=== PATIENT | male | born 1945 | race Caucasian/White ===

== ENCOUNTER 2020-11-05 09:11 | Outpatient (REF) | payer OTHER, SELFPAY ==
--- NOTE | ~2020-11-05 | XR_ITS ---
EXAMINATION: XR SHOULDER, LEFT CLINICAL INFORMATION: Left shoulder and upper arm pain. COMPARISON: None TECHNIQUE: AP external rotation, Grashey, scapular Y, and axillary views of the left shoulder. FINDINGS: There is loss of glenohumeral joint space. The AC joint appears intact with mild periarticular spurring. No visible acute fracture, dislocation or bony erosive changes seen. There is no abnormal joint effusion. XR/XR shoulder LT min 2V IMPRESSION: Degenerative arthritic changes left minimal joint and left AC joint. There is no visible acute fracture or lytic process.
== END 2020-11-05 09:12 | disposition home or self-care (01) ==
LOC: HO.HMGCX 09:11
PROVIDERS: Visit Provider Nurse Practitioner Family
DX: M25.512 Pain in left shoulder (principal); M79.622 Pain in left upper arm
CPT/HCPCS: 73030

== ENCOUNTER → 2020-11-13 11:01 | Outpatient (BNVA) | payer OTHER, SELFPAY | PROVIDERS: PCP Physician Assistant Medical; Visit Provider Urology | DX: Z13.89 Encounter for screening for other disorder (principal) | CPT/HCPCS: 99212 ==

== ENCOUNTER 2021-01-14 08:00 | Outpatient (RCR) | payer OTHER, SELFPAY ==
--- NOTE | 2020-12-03 08:54 | MHC.PT.EP ---
[facility] [place] Office [place] Office [place] Office [address] [phone] F: [phone] F: [phone] F: [phone] F: [phone] Physical Therapy Plan of Care Date of Evaluation: Date of Surgery: Diagnosis: This is a 75 yo male presenting to skilled PT with a script for L shoulder pain. Assessment: This is a 75 yo male presenting to skilled PT with a script for L shoulder pain. Patient presented to the walk in clinic after falling down a 4 stairs and landing on his L shoulder on 11/05/20. LHD. He had his L RTC repaired about 20 years ago. He was referred here by his PCP but will also be seen my NEOs next week and will be getting an MRI. Pain is located inside , constant, stabbing. Denies numbness or tingling. Reports Cracking . Assessment reveals pain that ranges up to an 8/10. Pain is described as and is located inside and is constant, stabbing and has crepitis. He demos decreased B shoulder ROM, decreased B shoulder and scapular strength, impaired shoulder joint complex mobility as well as gross functional decline with riding his bike, housework and general ADLs. He is a good candidate for skilled PT 2x/wk for 6wks. 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 Manual therapy to restore motion and function. Therapeutic exercise to improve strength and flexibility. Neuromuscular re-education for posture and balance. Therapeutic activities to return to functional activities of daily living. Electronically signed by: Shyla Dickerson PT Please sign and return to therapist. Thank you for your referral.
--- NOTE | 2021-01-14 16:02 | MHC.PT.DC ---
[facility] [place] Office [place] Office [place] Office [address] Emelina Gomez 140 [facility] [phone] F: [phone] F: [phone] F: [phone] F: [phone] Physical Therapy Discharge Report Diagnosis: This is a 75 yo male presenting to skilled PT with a script for L shoulder pain. Date of Surgery: Date of Evaluation: 12/03/20 Date of Discharge: 01/14/21 Treatments to Date: 10 Cancellations to Date: 0 No Shows to Date: 0 Discharge Status: Achieved Goals Improved Function Independent with HEP Patient Elected to Stop Discharge Summary: 01/14: Patient feels like he has made progress and ready for DC at this time. He has an extensive HEP at home and has improved ROM and strength. He understands he needs to see an orthopedic for his shoulders. DC to HEP at this time Electronically signed by: Shyla Dickerson PT Please sign and return to therapist. Thank you for your referral.
== END 2021-01-14 16:03 | disposition home or self-care (01) ==
LOC: HO.PTCHIC 08:00
PROVIDERS: Visit Provider Nurse Practitioner Family
DX: M25.512 Pain in left shoulder (principal); S49.92XD Unspecified injury of left shoulder and upper arm, subsequent encounter
CPT/HCPCS: 97110; 97140; 97162

== ENCOUNTER 2022-01-23 08:00 | Outpatient (RCR) | payer OTHER, SELFPAY | END 2022-01-23 08:38 | disposition home or self-care (01) | LOC: HO.PTCHIC 08:00 | PROVIDERS: PCP Internal Medicine; Visit Provider Physician Assistant | DX: Z98.890 Other specified postprocedural states (principal) | CPT/HCPCS: 97110; 97140; 97161; 97530 ==

== ENCOUNTER 2022-04-23 10:45 | Outpatient (REF) | payer OTHER, SELFPAY ==
[2022-04-23 14:30] LABS: Prostate Specific Antigen < 0.10 ng/mL (<0.05-4.0)
== END 2022-04-23 10:46 | disposition home or self-care (01) ==
LOC: HO.HMGCLDS 10:45
PROVIDERS: Visit Provider Urology
DX: Z12.5 Encounter for screening for malignant neoplasm of prostate (principal); C61 Malignant neoplasm of prostate
CPT/HCPCS: 36415; 84153

== ENCOUNTER → 2022-04-29 10:21 | Outpatient (BNVA) | payer OTHER, SELFPAY | PROVIDERS: PCP Internal Medicine; Visit Provider Urology | DX: N32.0 Bladder-neck obstruction (principal); C61 Malignant neoplasm of prostate | CPT/HCPCS: Q3014 ==

== ENCOUNTER → 2022-06-18 13:23 | Outpatient (BNVA) | payer OTHER, SELFPAY | PROVIDERS: PCP Internal Medicine; Visit Provider Urology | DX: N32.0 Bladder-neck obstruction (principal); C61 Malignant neoplasm of prostate | CPT/HCPCS: 52000; 99212 ==

== ENCOUNTER 2023-12-03 09:43 | Outpatient (AMB) | payer OTHER, SELFPAY ==
[2023-12-03 10:07] VITALS: BP 132/86; PULSE 90; TEMP 36.8; O2SAT 96
--- NOTE | 2023-12-03 10:07 | AM.OFFWIN_ITS ---
Intake Vital Signs 12/03/23 10:07 Height 5 ft 10.5 in BP 132/86 Blood Pressure Location Rt brachial Position Sitting Pulse 90 Pulse Source Pulse Oximeter Temp 98.2 F Temp Source Temporal Artery Scan Pulse Oximetry (%) 96 Oxygen Delivery Method Room Air Intake Visit Reasons: EP growth on LT side of face/eye Intake Note: pt is here for growth on left side of face and eye Patient Tobacco Use Status: Never used Tobacco Allergies pentazocine [From TALWIN] Allergy (Severe, Verified 12/03/23 10:07) PARANOIA/ANXIETY shellfish derived [SHELLFISH DERIVED] Allergy (Severe, Verified 12/03/23 10:07) ANAPHYLAXIS shellfish Allergy (Unknown, Uncoded 06/18/22 13:27) Unknown Talwin Allergy (Unknown, Uncoded 06/18/22 13:27) Unknown Do you need a note to return to daycare/school/sports/work: No HPI EP growth on LT side of face/eye HPI Details This is a 78-year-old male patient who presents today with a bump on right side of his face near his yazidi/corner of right eye. He states that he has noticed this about 1 month ago, when it appeared as a small pimple. He states it has grown since then, and become firmer. It is very mildly tender to the touch. Denies any drainage. [facility] Social History Patient Tobacco Use Status: Never used Tobacco Review of Systems Const All systems reviewed & are unremarkable except as noted in HPI and below Physical Exam Vital Signs: Last Vital Signs Temp 98.2 F 12/03/23 10:07 Pulse 90 12/03/23 10:07 BP 132/86 12/03/23 10:07 Pulse Ox 96 12/03/23 10:07 Oxygen Delivery Method Room Air 12/03/23 10:07 Const General: cooperative, healthy appearing, comfortable and no acute distress Nutritional Appearance: average body habitus HEENT Head: Yes normocephalic Eyes Periorbital: periorbital findings normal Neck Neck: Yes no lymphadenopathy Resp Effort & Inspection: normal respiratory effort Skin Other: approx 1cm round/firm lesiom noted on right temporal area, lateral to right eye. No drainage. No surrounding erythema or warmth. Extrem General: Yes no clubbing, cyanosis or edema Psych Appearance: grossly normal Mental Status: mental status grossly normal Speech and movement: Normal speech and movement present Assessment & Plan Assessment & Plan (1) Epidermoid cyst of face: Code(s): L72.0 - Epidermal cyst Plan: This appears consistent with an epidermoid cyst. I would like him to see dermatology for evaluation and possible removal. I have referred him to [facility], which patient agrees to. Certainly, in the meantime, if this worsens, becomes painful or starts draining, or develops any redness, tenderness, or warmth, he can return to the clinic for further evaluation. He verbalizes understanding and agrees to plan. Orders: Referrals Dermatology Referral L72.0 - Epidermal cyst Coding Level of Care Code Est Pt Level 3 (63574) Diagnoses Epidermoid cyst of face L72.0
== END 2023-12-03 10:52 | disposition home or self-care (01) ==
PROVIDERS: PCP Internal Medicine; Visit Provider Nurse Practitioner Family
DX: L72.0 Epidermal cyst (principal)
CPT/HCPCS: 99213

== ENCOUNTER 2024-03-15 09:05 | Outpatient (AMB) | payer OTHER, SELFPAY ==
--- NOTE | 2024-03-15 09:26 | A.OFFVIS_ITS ---
Intake Visit Reasons: 6M PSA(set) Intake Note: Patient is present for PSA Follow Up Urology Med: None Antibiotic Allergy: None Blood Thinner: None Recent PSA: 03/09/2024 PSA: <0.1 [place] Torch Operator Required: No Accompanied by: Self / Same As Patient Allergies pentazocine [From TALWIN] Allergy (Severe, Verified 03/15/24 09:31) PARANOIA/ANXIETY shellfish derived [SHELLFISH DERIVED] Allergy (Severe, Verified 03/15/24 09:31) ANAPHYLAXIS shellfish Allergy (Unknown, Uncoded 03/15/24 09:31) Unknown Talwin Allergy (Unknown, Uncoded 03/15/24 09:31) Unknown HPI Comments Details: Mr Altamirano is a very pleasant male. He is a patient of Dr. Sánchez. He is seen for the following urologic conditions. - lower urinary tract symptoms - post treatment bladder neck stricture - prostate cancer Yearly follow-up PSA <0.1 Cystoscopy 06/15 no evidence of bladder neck stricture. Leakage at end of day secondary to pelvic floor muscle fatigue Urination stable Lower Urinary Tract Symptoms: Current visit is for ongoing management of lower urinary tract symptoms Current treatment includes medication, alpha jl, tamsulosin. Prior treatments include procedure - TUIP - 06/09 - bladder neck contracture after radiation. Prostate Symptom Score 02/07 Mild (0-8), Bother 2 08/08 , Mild (0-8), Bother 2. Symptoms include and are improving. Prior Prostate Score moderate Associated conditions urinary tract infection prior infections due to retention Prostate cancer: Primary therapy brachytherapy 1996 with apical stricture Prostate cancer was diagnosed 1996 Diagnosis was reached by needle biopsy, for elevated PSA The Raman grade is 3+3 = 6 TNM Classification of Malignant Tumours (TNM) T1c. The D'Fabiola (NCCN) risk category is Low Risk (PSA< 10, Gl < 7, T1c). Initial therapy included Primary treatment, Brachytherapy [facility] , Additional treatment, Observation. Recent labs included a PSA (prostate-specific antigen) 04/08 , < 0.1, 02/07 < 0.1, 08/08 < 0.1, 03/10 < 0.1, 09/09 < 0.1, 09/10 < 0.1, 05/14 <0.1 Associated conditions erectile dysfunction Yes hematuria Yes radiation cystitis Yes rectal urgency Yes Cystoscopy - 06/15 Therapeutic plan: Continue with surveillance [facility] Social History Patient Tobacco Use Status: Never used Tobacco Review of Systems Const Denies chills and Denies fever(s) Card Reports no additional complaints and Denies syncope Resp Denies cough GI Denies abdominal pain and Denies heartburn Reports as per HPI and Denies change in libido Neuro Denies syncope Psych Denies change in libido Endo Denies change in libido Physical Exam Const General: cooperative, healthy appearing, comfortable and no acute distress Orientation/consciousness: patient oriented x3 HEENT Face and sinus: Yes normal facial exam Mouth: moist mucous membranes Neck Neck: Yes normal visual inspection, Yes full ROM and Yes trachea midline Chest Chest palpation & inspection: normal inspection of the chest Resp Effort & Inspection: normal respiratory effort, able to speak in complete sentences and no respiratory distress GI Inspection: Yes normal to inspection Back/Spine/Pelvis Cervical Spine: normal cervical lordosis Thoracic/Lumbar Spine: thoracic and lumbar spine normal to inspection Skin General skin exam: no rashes or lesions noted Neuro General: patient oriented x3, gait normal, tone normal and moves all extremities Extrem General: Yes normal to inspection and Yes capillary refill normal Assessment & Plan Assessment & Plan (1) Prostate cancer: Code(s): C61 - Malignant neoplasm of prostate Category: Medical (2) Bladder neck stricture: Code(s): N32.0 - Bladder-neck obstruction Category: Medical Plan Twelve month follow-up PSA Orders: Orders Prostate Specific Antigen 364 Days C61 - Malignant neoplasm of prostate Patient Instructions: Imaging studies, laboratory and physical exam results were discussed and reviewed in detail. No major barriers to patient understanding were identified. An opportunity to ask questions regarding the treatment plan was provided. All questions were answered. The patient expressed understanding and agreement with the above treatment plan. The patient is aware they should contact our office by phone for worsening of their current condition or the appearance of new urologic symptoms. Compliance is encouraged with any medications and followup testing that is ordered. It is a privilege to participate in the urologic care of your patient. If you have any questions or concerns regarding treatment for the above conditions, or other urologic issues, please do not hesitate to contact me. The office telephone contact is [phone]. This note is constructed using voice recognition software. While every effort has been made to ensure accuracy automation test developer errors may have been included. Yours sincerely, Dr Leon Daily MD, CRISTOBAL [facility] - Urology Providers of Expert, Compassionate Care for the Genitourinary System Coding Level of Care Code Est Pt Level 4 (03983) Diagnoses Prostate cancer C61 Bladder neck stricture N32.0
== END 2024-03-15 09:47 | disposition home or self-care (01) ==
PROVIDERS: PCP Internal Medicine; Referring Provider Internal Medicine; Visit Provider Urology
DX: C61 Malignant neoplasm of prostate (principal); N32.0 Bladder-neck obstruction
CPT/HCPCS: 99214

== ENCOUNTER → 2024-03-15 09:05 | Outpatient (BNVA) | payer OTHER, SELFPAY | PROVIDERS: PCP Internal Medicine; Visit Provider Urology ==

== ENCOUNTER 2024-07-25 08:44 | Outpatient (RCR) | payer OTHER, SELFPAY ==
--- NOTE | 2024-06-21 12:05 | MHC.OT.OP ---
[address] [phone] F: [phone] Occupational Therapy Progress Note Patient Name: Cirilo Altamirano Diagnosis: R elbow dislocation Date of Surgery: Date of Evaluation: 05/11/24 Treatments to Date: 10 Cancellations to Date: No Shows to Date: Subjective: I can feel it, but its getting better Pain Score: 5 Pain Location: right elbow Objective Measures: Status: Progressing Assessment: Pt's AROM of his R UE has improved he measured : elbow ext: 0 flex: 135 sup/pro: 75/80 today. We are moving the focus of his therapy into strengthening his UE on 06/19/24 his R hand physician practice market manager measured 18lbs. and his L hand physician practice market manager was 55 lbs. He has Met his STG's and we are focusing therapy on meeting his LTG's. He tolerated therapy well and strengthening well today. He would continue to benefit from skilled OT therapy to focus on UE strengthening to increase the functional use of his non - dominant hand for performing ADLs. [ End ] Short Term Goals: Pt will be complaint w/ his HEPMET Pt will gain 15 of elbow flexion (140)MET Pt will gain 10 of elbow extension (-10)MET Penitentiary Goals: Pt will have 70 of FA Supination MET Pt will report the ability to open jars w/out difficulty Pt will report being able to use his R UE to carry a gallon of milk w/out difficulty Frequency and Duration: The patient will be seen 2 x 2 weeks Treatment Plan: Therapeutic Exercise Therapeutic Activity Home Exercise Program Splinting Neuro Re-ed Patient Education Desensitization/Sensory Re-ed Edema Control ADL Training Ultrasound NMES Iontophoresis Paraffin Fluidotherapy MHP Cold Packs Joint Mobilization Soft Tissue Mobilization Kinesiotaping Other (see comments) Pt wore a bulky sweater to his IE today; may need to remeasure @ next visit Electronically Signed By: Itzel Oakley OTR/L Reviewed/agree with student documentation: N/A Therapist:
== END 2024-07-27 16:51 | disposition home or self-care (01) ==
LOC: HO.OT 08:44
PROVIDERS: PCP Internal Medicine; Visit Provider Physician Assistant
DX: S53.104D Unspecified dislocation of right ulnohumeral joint, subsequent encounter (principal)
CPT/HCPCS: 97110; 97140; 97166; 97535

== ENCOUNTER 2025-03-15 09:00 | Outpatient (AMB) | payer OTHER, SELFPAY ==
--- NOTE | 2025-03-15 09:20 | A.OFFVIS_ITS ---
Intake Visit Reasons: 1y/PSA/disorder of prostate Intake Note: Patient is present for 1 YR Follow Up Urology Med: None Antibiotic Allergy: None Blood Thinner: None Recent PSA: 03/01/2025 PSA: <0.06 Glass Pulverizer Equipment Operator Required: No Accompanied by: Self / Same As Patient Allergies pentazocine (From TALWIN) Allergy (Severe, Verified 03/15/25 09:21) PARANOIA/ANXIETY shellfish derived (SHELLFISH DERIVED) Allergy (Severe, Verified 03/15/25 09:21) ANAPHYLAXIS shellfish Allergy (Unknown, Uncoded 03/15/24 09:31) Unknown Talwin Allergy (Unknown, Uncoded 03/15/24 09:31) Unknown HPI Comments Details: Mr Altamirano is a very pleasant male. He is a patient of Dr. Sánchez. He is seen for the following urologic conditions. - lower urinary tract symptoms - post treatment bladder neck stricture - prostate cancer Yearly follow-up PSA <0.1 Cystoscopy 06/15 no evidence of bladder neck stricture. Leakage at end of day secondary to pelvic floor muscle fatigue Urination stable Continue yearly follow-up for prostate cancer with apical stricture Upcoming check on vocal nodules Lower Urinary Tract Symptoms: Current visit is for ongoing management of lower urinary tract symptoms Current treatment includes medication, alpha jl, tamsulosin. Prior treatments include procedure - TUIP - 06/09 - bladder neck contracture after radiation. Prostate Symptom Score 02/07 Mild (0-8), Bother 2 08/08 , Mild (0-8), Bother 2. Symptoms include and are improving. Prior Prostate Score moderate Associated conditions urinary tract infection prior infections due to retention Prostate cancer: Primary therapy brachytherapy 1996 with apical stricture Prostate cancer was diagnosed 1996 Diagnosis was reached by needle biopsy, for elevated PSA The Harrison grade is 3+3 = 6 TNM Classification of Malignant Tumours (TNM) T1c. The D'Fabiola (NCCN) risk category is Low Risk (PSA< 10, Gl < 7, T1c). Initial therapy included Primary treatment, Brachytherapy [facility] , Additional treatment, Observation. Recent labs included a PSA (prostate-specific antigen) 04/08 , < 0.1, 02/07 < 0.1, 08/08 < 0.1, 03/10 < 0.1, 09/09 < 0.1, 09/10 < 0.1, 05/14 <0.1, 03/17 <0.06 Associated conditions erectile dysfunction Yes hematuria Yes radiation cystitis Yes rectal urgency Yes Cystoscopy - 06/15 Therapeutic plan: Continue with surveillance [facility] Social History Patient Tobacco Use Status: Never used Tobacco Review of Systems Const Denies chills and Denies fever(s) Card Reports no additional complaints and Denies syncope Resp Denies cough GI Denies abdominal pain and Denies heartburn Reports as per HPI and Denies change in libido Neuro Denies syncope Psych Denies change in libido Endo Denies change in libido Physical Exam Const General: cooperative, healthy appearing, comfortable and no acute distress Orientation/consciousness: patient oriented x3 HEENT Face and sinus: Yes normal facial exam Mouth: moist mucous membranes Neck Neck: Yes normal visual inspection, Yes full ROM and Yes trachea midline Chest Chest palpation & inspection: normal inspection of the chest Resp Effort & Inspection: normal respiratory effort, able to speak in complete sentences and no respiratory distress GI Inspection: Yes normal to inspection Back/Spine/Pelvis Cervical Spine: normal cervical lordosis Thoracic/Lumbar Spine: thoracic and lumbar spine normal to inspection Skin General skin exam: no rashes or lesions noted Neuro General: patient oriented x3, gait normal, tone normal and moves all extremities Extrem General: Yes normal to inspection and Yes capillary refill normal Assessment & Plan Assessment & Plan (1) Prostate cancer: Code(s): C61 - Malignant neoplasm of prostate Category: Medical (2) Bladder neck stricture: Code(s): N32.0 - Bladder-neck obstruction Category: Medical Plan Twelve month follow-up Patient Instructions: This note is constructed using voice recognition software. While every effort has been made to ensure accuracy securities adviser errors may have been included. Imaging studies, laboratory and physical exam results were discussed and reviewed in detail. No major barriers to patient understanding were identified. An opportunity to ask questions regarding the treatment plan was provided. All questions were answered. The patient expressed understanding and agreement with the above treatment plan. The patient is aware they should contact our office by phone for worsening of their current condition or the appearance of new urologic symptoms. Compliance is encouraged with any medications and followup testing that is ordered. It is a privilege to participate in the urologic care of your patient. If you have any questions or concerns regarding treatment for the above conditions, or other urologic issues, please do not hesitate to contact me. The office telephone contact is [phone]. Sincerely, Dr Leon Daily MD, [facility] - Urology Compassionate Specialist Care for the Genitourinary System Coding Level of Care Code Est Pt Level 4 (78726) Complex EM visit Add On G2211 Diagnoses Prostate cancer C61 Bladder neck stricture N32.0
--- OUTSIDE RECORDS SUMMARY | 2025-03-15 09:48 | XMS_ITS | Encounter Summary ---
Author Organization [facility] Address [address] [place] [address] Care Team Providers Care Silver Miner Name Role Phone Adrian Sánchez MD Primary Care Provider [phone] Reason for Referral * Consultation (Routine) - Closed Specialty Diagnoses / Procedures Referred By Marlene t Referred To Contact Urology Diagnoses Disorder of prostate, unspecified Adrian Sánchez MD [address] [place] [address] Phone: tel: fax: Leon Daily MD [address] [place] [address] [place] [address] Phone: tel: fax: Referral ID Status Reason Start Date Expiration Date V isits Requested Visits Authorized [id number] Closed Specialty Services Required 03/12/2025 03/12/2026 10 10 Reason for Visit * Reason Onset Date Comments Referral 03/12/2025 Encounter Details Date Type Department Care Team (Late st Contact Info) Description 03/12/2025 Telephone Adult Medicine [address] [phone] Adrian Sánchez MD [address] [place] [address] Social History Tobacco Use Types Packs/Day Years Used Date Smoking Tobacco: Former Smokeless Tobacco: Never Alcohol Use Standard Drinks/Week Comments Yes 7 (1 standard drink = 0.6 oz pur e alcohol) Sex and Gender Information Value Date Recorded Sex Assigned at Not on file Legal Sex Male 10:13 PM EST Gender Identity Not on file Sexual Orientation Not on file documented as of this encounter Progress Notes * Tameka Sin - 03/12/2025 11:46 AM EDT [facility] [facility] [place] has appt on 03/15/25. documented in this encounter Plan of Treatment Upcoming Encounters Date Type Department Care Team (Late st Contact Info) Description 04/23/2025 11:00 AM EST Office Visit Adult Medicine [address] [phone] Shannan Cunha PA [address] [place] [address] Scheduled Referrals Name Type Priority Associated Diagnoses Orde r Schedule Ambulatory referral to Urology Outpatient Referral Routine Disorder of prostate, unspecified Expected: 03/15/2025, Expires: 03/12/2026 documented as of this encounter Visit Diagnoses Diagnosis Disorder of prostate, unspecified- Primary documented in this encounter Additional Health Concerns Assessment Noted Time PHQ-9 Depression Total Score: 1 12/21/19 11:42 AM EDT A fall risk assessment has been complete d for the patient 12/20/2024 11:40 AM EDT documented as of this encounter Care Teams Silver Miner Relationship Specialty Start Date End Date Adrian Sánchez MD [address] [place] [address] PCP - General Internal Medicine 11/18/21 documented as of this encounter
--- OUTSIDE RECORDS SUMMARY | 2025-03-15 09:48 | XMS_ITS | Clinical Summary ---
Author Organization [facility] Address [address] [place] [address] Care Team Providers Care Change Control Analyst Name Role Phone Unavailable Primary Care Provider Unavailabl e Allergies Active Allergy Reactions Criticality Noted Date Comments Atorvastatin Muscle Pain 05/02/2024 Pentazocine Lactate Seizure High 01/04/2006 Shellfish Containing Products Anaphylaxis,Dyspnea,Swell ing High 07/06/2011 Shellfish Derived Anxiety 05/02/2024 Medications acetaminophen (TYLENOL) 650 mg 8 hr tablet Take 1 tablet by mouth every 8 hours as needed. 4 Active tiotropium (SPIRIVA HANDIHALER) 18 mcg inhalation capsule PLEASE SEE ATTACHED FOR DETAILED DIRECTIONS 4 Active fenofibrate (LOFIBRA) 54 mg tablet SMARTSI Tablet(s) By Mouth Daily Active metFORMIN ER (GLUCOPHAGE XR) 500 mg tablet Take 1 Tablet by mouth daily (with breakfast). Active oxyCODONE-acetami nophen (PERCOCET) 5-325 mg tablet SMARTSI Tablet(s) By Mouth Every 6 Hours PRN 4 Active oxyCODONE IR (ROXICODONE) 5 mg tablet SMARTSI Tablet(s) By Mouth Every 4 Hours PRN 4 Active melatonin 5 mg tablet TAKE 1 TABLET BY MOUTH AT BEDTIME NEEDED (INSOMINIA). 4 Active silver sulfadiazine (SILVADENE) 1% cream Apply small amount to the wound once daily before dressing with bandaid 4 Active cholecalciferol (VITAMIN D3) 2,000 unit tablet Take 2,000 Units by mouth daily. 4 Active Active Problems No known active problems Social History Tobacco Use Types Packs/Day Years Used Date Smoking Tobacco: Never Assessed Sex and Gender Information Value Date Recorded Sex Assigned at Male 04/05/2024 2:11 PM EST Legal Sex Male 11:39 AM EST Gender Identity Male 04/05/2024 2:11 PM EST Sexual Orientation Not on file Last Filed Vital Signs Vital Sign Reading Time Taken Comments Blood Pressure 133/81 05/02/2024 7:45 AM EST Pulse 99 05/02/2024 7:45 AM EST Temperature - - Respiratory Rate - - Oxygen Saturation - - Inhaled Oxygen Concentration - - Weight - - Height - - Body Mass Index - - Plan of Treatment Health Maintenance Due Date Last Done Comments Hepatitis C Screening 1945 RSV Vaccine (60+ years old and patients) (1 - 1-dose 75+ series) 2021 Alcohol/Substance Use Screening 05/24/2024 Depression Screening and Follow-Up 05/24/2024 Health Care Proxy Review 05/24/2024 Social Drivers of Health Annual Screening 05/24/2024 COVID-19 Vaccine ( season) 2025 01/30/2024, 03/07/2023, 01/02/2022, Additional history exists Influenza Vaccine (#1) 2025 , 03/04/2023, 01/02/2022, Additional history exists DTaP,Tdap,and Td Vaccines (4 - Td or Tdap) 07/18/2034 07/18/2024, 02/06/2021, 12/10/2010 Pneumococcal Vaccine: 50+ Years Completed 03/31/2022, 06/08/2015, 06/08/2014, Additional history exists Zoster Vaccines Completed 07/29/2022, 02/21, 02/01/2012 Hepatitis B Vaccines Aged Out No long er eligible based on patient's age to complete this topic Insurance [facility]
--- OUTSIDE RECORDS SUMMARY | 2025-03-15 09:48 | XMS_ITS | Clinical Summary ---
Author Organization [facility] Address [address] [place] [address] Phone Care Team Providers Care Refrigeration Brazer/Solderer Name Role Phone Adrian Sánchez MD Primary Care Provider Allergies Active Allergy Reactions Criticality Noted Date Comments Pentazocine Lactate 01/04/2006 Shellfish Containing Products Swelling,Shortness of breath,Anaphylaxis High 07/06/2011 Medications melatonin 5 mg tablet TAKE 1 TABLET BY MOUTH AT BEDTIME NEEDED (INSOMINIA). 09/20/19 24 Active silver sulfADIAZINE (SILVADENE, SSD) 1 % cream Apply small amount to the wound once daily before dressing with bandaid 11/17/19 24 Active diclofenac (VOLTAREN) 1 % topical gel Apply 2 g topically 2 (two) times a day. 60 g 3 07/18/19 25 Active cyclobenzaprine (FLEXERIL) 5 mg tabletIndication s:Chronic elbow pain, right Take 1 tablet (5 mg total) by mouth at bedtime as needed for muscle spasms. 30 tablet 3 07/18/19 25 Active cyanocobalamin (VITAMIN B-12) 1,000 mcg tablet TAKE 1 TABLET (1,000 MCG TOTAL) BY MOUTH 3 (THREE) TIMES A WEEK. 36 tablet 10/28/19 25 Active albuterol HFA (PROAIR HFA ; PROVENTIL HFA ; VENTOLIN HFA) 90 mcg/actuation inhaler Inhale 2 puffs by mouth every 4 (four) hours if needed for wheezing. Inhale 2 Puffs into the lungs 4 times daily as needed for Cough or Wheezing. 6.7 g 2 12/21/19 25 Active atorvastatin (LIPITOR) 20 mg tablet Take 1 tablet (20 mg total) by mouth 1 (one) time each day. 90 tablet 1 12/21/19 25 Active metFORMIN XR (GLUCOPHAGE-XR) 500 mg 24 hr tablet Take 1 tablet (500 mg total) by mouth 1 (one) time each day. Take 1 Tablet by mouth daily (with breakfast). 90 tablet 1 12/21/19 25 Active neomycin-polymyx in-hydrocortison e (CORTISPORIN) otic solution Administer 3 drops into each ear 4 (four) times a day. 10 mL 12/21/19 25 Active cholecalciferol (VITAMIN D-3) 50 mcg (2,000 unit) tablet TAKE 1 TABLET BY MOUTH EVERY DAY 90 tablet 1 01/10/20 25 Active tiotropium (SPIRIVA) 18 mcg per inhalation capsuleIndicatio ns:Mixed hyperlipidemia,E ncounter for screening for depression INHALE 1 CAPSULE INTO THE LUNGS DAILY IN THE MORNING 90 each 03/07/20 25 Active tiotropium (SPIRIVA) 18 mcg per inhalation capsuleIndicatio ns:Mixed hyperlipidemia,E ncounter for screening for depression INHALE 1 CAPSULE INTO THE LUNGS DAILY IN THE MORNING 90 each 11/29/19 25 025 Discontinued Active Problems Problem Noted Date Diagnosed Date Alcohol use disorder 07/18/2024 Assessment & Plan (12/20/2024 12:32 PM EDT): Orders: Comprehensive metabolic panel; Future Basal cell carcinoma (BCC) of scalp 07/17/2024 Assessment & Plan (12/20/2024 12:32 PM EDT): Prostate cancer ([facility]/HCC V24, [facility] V28) 07/27 Assessment & Plan (12/20/2024 12:32 PM EDT): Rotator cuff arthropathy of right shoulder 07/27 Prediabetes 03/04/2023 Assessment & Plan (12/20/2024 12:32 PM EDT): Orders: Hemoglobin A1c; Future Comprehensive metabolic panel; Future Vitamin B12 deficiency 03/04/2023 Assessment & Plan (12/20/2024 12:32 PM EDT): Hypertension 11/07/2020 Overview (02/21/2024): Last Assessment & Plan: His blood pressure has been stable. It is a little elevated today but he is a little worked up. He is also having some pain from his recent fall in his shoulder. We will continue him on his current medications and will continue to monitor. If this starts to go up we will need to make adjustments in his medications. Dyspnea 04/29/2020 Overview (02/21/2024): Last Assessment & Plan: He continues to experience exertional dyspnea. We did discuss that he may need to have pulmonary function testing done. He does state that his breathing improves when he takes his albuterol. I am wondering if he needs to be on a long-acting bronchodilator. He will be following up with you in regards to this. If his pulmonary function testing is normal then we will reconsider coronary artery disease as a cause. All of his cardiac work-up in the past has been negative. Primary insomnia 02/23/2017 Abdominal aortic aneurysm ([facility] V24) 04/22/20 16 Overview (02/21/2024): 3.2 cm 08/2018, 2.9 10/2020 (not aneurysmal) Last Assessment & Plan: This is been stable and has been followed by vascular surgery. Depression 01/02/2014 COPD (chronic obstructive pu lmonary disease) ([facility] V24, [facility] V28) 11/02/2013 Overview (02/21/2024): Last Assessment & Plan: His dyspnea has been stable. He has been using Spiriva. He feels like this is improved his symptoms. We will continue to monitor. He has no evidence of heart failure. If his breathing worsens we will need to consider doing a stress test. Assessment & Plan (12/20/2024 12:32 PM EDT): High triglycerides 03/16/2010 Elevated SGOT 01/10/2009 Hoarseness 01/03/2009 Anemia 09/13/2007 Overview (02/21/2024): IMO Update Fall 2015 Benign neoplasm of colon 08/10/2007 Overview (02/21/2024): Small polyp biopsied from the distal sigmoid colon 08/10/2007: hyperplastic. No colon cancer screening needed for 10 years. Diverticulitis of colon without hemorrhage 08/09 Overview (02/21/2024): Incidental finding at colonoscopy 08/10/2007. Radiation proctitis 08/10/2007 Overview (02/21/2024): Minimal radiation proctitis identified at colonoscopy 08/10/2007. History of brachytherapy for prostate cancer early . Mixed hyperlipidemia 01/04/2006 Overview (02/21/2024): Last Assessment & Plan: This has been stable. He has been doing well on his lovastatin. He does have some mild calcification seen on his aorta. We will try to get his LDL less than 70 because of this. We may need to increase the dose of his lovastatin or change him to a stronger statin if he is not able to get to goal. Assessment & Plan (12/20/2024 12:32 PM EDT): Orders: Lipid panel with reflex to direct LDL; Future Encounters Date Type Department Care Team Description 03/12/2025 Telephone Adult Medicine [address] [phone] Adrian Sánchez MD 03/01/2025 Results Follow-Up Adult Medicine [address] [phone] Adrian Sánchez MD 12/20/2024 11:30 AM EDT Office Visit Adult Medicine [address] [phone] Adrian Sánchez MD Chronic obstructive pulmonary disease, unspecified COPD type (CMS/HCC V24, CMS/HCC V28) (Primary Dx); Mixed hyperlipidemia; Alcohol use disorder; Vitamin B12 deficiency; Prediabetes; Prostate cancer ([facility] V24, [facility] V28); Basal cell carcinoma (BCC) of scalp; Vocal cord nodule; Encounter for subsequent annual wellness visit (AWV) in Medicare patient 12/13/2024 8:45 AM EDT Office Visit Orthopedic Surgery - [place] [address] [place] [phone] Fady Sebastian, [place] Pain in toes of both feet (Primary Dx); Arthritis of both feet; Hammertoes of both feet from Last 3 Months Immunizations Immunization Administration Dates Next Due COVID-19 (Moderna/Spikevax) 12yo and older 01/29/2025 Influenza trivalent, 0.5mL ( Fluzone High-dose) 65yo and older 01/20/2025,01/21/2024,03/04/2023,01/02,02/06/2021,02/19/2020,02/14/2019 ,02/21/2018,02/23/2017 Influenza trivalent, with pr eservative (Fluzone; Afluria) 6mo and older 04/10/2016,04/09/2014,02/07/2013,03/15,02/24/2011 PAT/[facility] SARS-CoV-2 COVID -19, vector-nr, rS-Ad26, preservative free 06/14/2021 Pneumococcal conjugate 13 va lent (Prevnar 13, PCV13) 2mo and older 06/08/2014 Pneumococcal conjugate 20 va lent (Prevnar 20, PCV 20) 2mo and older 03/31/2022 Pneumococcal polysaccharide 23 valent (Pneumovax 23) 2yo and older 06/08/2015,10/13/2013 RSV, bivalent, protein subun it RSVpreF, 0.5mL, Preservative Free (Arexvy) 50yo and older 01/20/2025 Td Tetanus diptheria (Tdvax) 7yo and older 02/06/2021 Tdap Tetanus diptheria acell ular pertussis (Boostrix; Adacel) 7yo and older 07/18/2024,12/10/2010 Zoster Live 02/01/2012 Zoster recombinant (Shingrix ) 19yo and older 07/29/2022,03/11/2022 Surgical History Surgery Date Site/Laterality Comments OTHER SURGICAL HISTORY 1996 PROCEDURE: PROSTATE BRACHY W IODINE SEE; COMMENT: [facility]; rx for prostate cancer HIP ARTHROPLASTY Left PROCEDURE: HISTORICAL HIP REPLACEMENT; COMMENT: [facility] COLONOSCOPY 08/10/2007 PROCEDURE: HISTORICAL COLONOSCOPY; COMMENT: polyp: hyperplastic COLONOSCOPY 07/15/2000 PROCEDURE: HISTORICAL COLONOSCOPY; COMMENT: radiation proctitis COLONOSCOPY 10/19/2017 PROCEDURE: HISTORICAL COLONOSCOPY; COMMENT: Incomplete to 25 cm; diverticulosis; biopsies of rectal ulcer: benign and negative for CMV. OTHER SURGICAL HISTORY 2218 PROCEDURE: HISTORY OTHER; COMMENT: ankle replacement dr landeros HIP ARTHROPLASTY 10/13/2018 Right PROCEDURE: HISTORICAL HIP REPLACEMENT; COMMENT: Dr. Fuentes CYSTOSCOPY 05/2016 PROCEDURE: HISTORICAL CYSTOSCOPY; COMMENT: cystocopy,bladder neck incision Medical History Medical History Date Comments Diverticulosis of colon (wit hout mention of hemorrhage) 08/10/2007 DX:Diverticulosis of colon ( without mention of hemorrhage); COMMENT: Incidental finding at colonoscopy 08/10/2007. Benign neoplasm of colon 08/10/2007 DX:Rad gn neoplasm of colon; COMMENT: Small polyp biopsied from the distal sigmoid colon 08/10/2007 Radiation proctitis 08/10/2007 DX:Radiation proctitis; COMMENT: Minimal radiation proctitis identified at colonoscopy 08/10/2007. History of brachytherapy for prostate cancer early . Hepatitis B 01/10/2009 DX:Hepatitis B Alcohol consumption of more than four drinks per day 05/10/2015 DX:Alcohol consumption of mo re than four drinks per day Family History Medical History Relation Name Comments Other: health history unknown Father Other: health history unknown Mother Bladder Cancer Neg Hx Kidney cancer Neg Hx Prostate cancer Neg Hx Relation Name Status Comments Brother suicide Daughter suicide Father ? Mother ? Sister 1 Alive Sister 2 Alive Sister 3 Alive 1/2 sib Sister 4 Alive 1/2 sib Son Alive Social History Tobacco Use Types Packs/Day Years Used Date Smoking Tobacco: Former Smokeless Tobacco: Never Alcohol Use Standard Drinks/Week Comments Yes 7 (1 standard drink = 0.6 oz pur e alcohol) Sex and Gender Information Value Date Recorded Sex Assigned at Not on file Legal Sex Male 10:13 PM EST Gender Identity Not on file Sexual Orientation Not on file Obstetrics History Last Filed Vital Signs Vital Sign Reading Time Taken Comments Blood Pressure 116/78 12/20/2024 11:38 AM EDT Pulse 86 12/20/2024 11:38 AM EDT Temperature 36.5 C (97.7 F) 12/20/2024 11:38 AM EDT Respiratory Rate 18 12/20/2024 11:38 AM EDT Oxygen Saturation 95% 07/18/2024 8:01 AM EST Inhaled Oxygen Concentration - - Weight 96.2 kg (212 lb) 12/20/2024 11:38 AM EDT Height 180.3 cm (5' 10.98 ) 12/20/2024 11:38 AM EDT Body Mass Index 29.58 12/20/2024 11:38 AM EDT Plan of Treatment Upcoming Encounters Date Type Department Care Team (Late st Contact Info) Description 04/23/2025 11:00 AM EST Office Visit Adult Medicine [facility] [address] [place] [address] Shannan Cunha PA [address] [place] [address] Health Maintenance Due Date Last Done Comments Hepatitis A Vaccines (1 of 2 - Risk 2-dose series) 1964 Social Influencers of Health Screening 04/25/2022 Falls Risk Assessment 12/20/2025 12/20/2024 Medicare Annual Wellness Visit 12/20/2025 12/20/2024 Hypertension/CHF/CAD Annual BMP Blood Test 03/01/2026 03/01/2025, 07/19/2024, 03/25/2024, Additional history exists Cholesterol Screening (Lipid Panel) 03/01/2030 03/01/2025, 01/31/2024, 01/31/2024 DTaP,Tdap,and Td Vaccines (5 - Td or Tdap) 12/31/2034 12/31/2024, 07/18/2024, 02/06/2021, Additional history exists Hepatitis C Screening Completed 06/10/2016 Pneumococcal Vaccine: 50+ Years Completed 03/31/2022, 06/08/2015, 06/08/2014, Additional history exists Zoster Vaccines Completed 07/29/2022, 02/21, 02/01/2012 Depression Screening Completed 12/20/2024, 03/04/20 Influenza Vaccine Completed 01/20/2025, , 01/11/2024, Additional history exists RSV Immunization Adult Patients Completed 01/20/2025 COVID-19 Vaccine Completed 01/29/2025, 12/2023, 03/07/2023, Additional history exists HIB Vaccines Aged Out No longer eligi ble based on patient's age to complete this topic HPV Vaccines Aged Out No longer eligi ble based on patient's age to complete this topic Hepatitis B Vaccines Aged Out No long er eligible based on patient's age to complete this topic IPV Vaccines Aged Out No longer eligi ble based on patient's age to complete this topic MMR Vaccines Aged Out No longer eligi ble based on patient's age to complete this topic Meningococcal ACWY Vaccine Aged Out N o longer eligible based on patient's age to complete this topic Meningococcal B Vaccine Aged Out No l onger eligible based on patient's age to complete this topic RSV Immunization Patients Under 20 months Aged Out No longer eligible based on patient's age to complete this topic Varicella Vaccines Aged Out No longer eligible based on patient's age to complete this topic Procedures Procedure Name Priority Date/Time Associated Diagnosis Comments PROSTATE SPECIFIC ANTIGEN DIAGNOSTIC Routine 03/01/2025 12:23 PM EDT Mixed hyperlipidemia Alcohol use disorder Prediabetes Prostate cancer ([facility] V24, [facility] V28) HEMOGLOBIN A1C Routine 03/01/2025 12:23 PM EDT Prediabetes COMPREHENSIVE METABOLIC PANEL Routine 03/01/2025 12:23 PM EDT Alcohol use disorder Prediabetes LIPID PANEL WITH REFLEX TO DIRECT LDL Routine 03/01/2025 12:23 PM EDT Mixed hyperlipidemia DEPRESSION SCREENING Routine 03/04/2023 HEPATITIS C SCREENING Routine 06/10/2016 from Last 3 Months or Most Recently Relevant to Health Maintenance Results * Lipid panel with reflex to direct LDL (03/01/2025 12:23 PM EDT) Cholesterol 139 0 - 200 mg/dL LAB CHEMISTRY METHOD 03/01/2025 2:46 PM EDT [facility] Triglycerides 94 0 - 150 mg/dL LAB CHEMISTRY METHOD 03/01/2025 2:46 PM EDT [facility] HDL 48 >=40 mg/dL LAB CHEMISTRY METHOD 03/01/2025 2:46 PM EDT [facility] LDL Calculated 72 0 - 100 mg/dL LAB CHEMISTRY METHOD 03/01/2025 2:46 PM EDT [facility] Comment:Estimated LDL Calcul ated using equation: Total cholesterol - HDL cholesterol - (Triglycerides/5) VLDL Cholesterol Corey 18.8 mg/dL LAB CHEMISTRY METHOD 03/01/2025 2:46 PM EDT [facility] Non HDL Chol. (LDL+VLDL) 91 <145 mg/dL LAB CHEMISTRY METHOD 03/01/2025 2:46 PM EDT [facility] Chol/HDL Ratio 2.9 0.0 - 4.4 LAB CHEMISTRY METHOD 03/01/2025 2:46 PM EDT [facility] Blood Venous blood specimen / Unknown Venipuncture / Unknown 03/01/2025 12:23 PM EDT 03/01/2025 12:23 PM EDT us Adrian Sánchez MD LAB BLOOD ORDERABLES Final Result [facility] [address] [place] [address], * Prostate specific antigen diagnostic (03/01/2025 12:23 PM EDT) PSA <0.06 0.00 - 4.00 ng/mL LAB CHEMISTRY METHOD 03/01/2025 3:35 PM EDT [facility] Blood Venous blood specimen / Unknown Venipuncture / Unknown 03/01/2025 12:23 PM EDT 03/01/2025 12:23 PM EDT Narrative [facility] - 03/01/2025 3:35 PM EDT The Siemens Advia Centaur Chemiluminescent Immunoassay is used. Results obtained with different assay methods or kits cannot be used interchangeably. Results cannot be interpreted as absolute evidence of the presence or absence of malignant disease. Leon Daily MD LAB BLOOD ORDERABLES Final Re sult Performing Organization Address [facility]/ZIP Co de Phone Number [facility] [address] [place] [address], [place] [phone] * Hemoglobin A1c (03/01/2025 12:23 PM EDT) Pathologist [facility] Hemoglobin A1C 5.5 <6.5 % LAB CHEMISTRY METHOD 03/01/2025 9:47 PM EDT [facility] Mean Bld Glu Estim. 111 mg/dL LAB CHEMISTRY METHOD 03/01/2025 9:47 PM EDT [facility] Blood Venous blood specimen / Unknown Venipuncture / Unknown 03/01/2025 12:23 PM EDT 03/01/2025 12:23 PM EDT Adrian Sánchez MD LAB BLOOD ORDERABLES Final Result Performing Organization Address [facility]/ZIP Co de Phone Number [facility] [address] [place] [address], [place] [phone] * Comprehensive metabolic panel (03/01/2025 12:23 PM EDT) Pathologist [facility] Sodium 136 133 - 145 mmol/L LAB CHEMISTRY METHOD 03/01/2025 2:46 PM EDT [facility] Potassium 4.3 3.5 - 5.5 mmol/L LAB CHEMISTRY METHOD 03/01/2025 2:46 PM EDT [facility] Chloride 104 96 - 110 mmol/L LAB CHEMISTRY METHOD 03/01/2025 2:46 PM [facility] CO2 24 21 - 32 mmol/L LAB CHEMISTRY METHOD 03/01/2025 2:46 PM [facility] Anion Gap 8 3 - 11 LAB CHEMISTRY METHOD 03/01/2025 2:46 PM [facility] Glucose 83 70 - 100 mg/dL LAB CHEMISTRY METHOD 03/01/2025 2:46 PM [facility] BUN 18 5 - 25 mg/dL LAB CHEMISTRY METHOD 03/01/2025 2:46 PM [facility] Creatinine 0.88 0.70 - 1.30 mg/dL LAB CHEMISTRY METHOD 03/01/2025 2:46 PM [facility] eGFR 88 >=60 mL/min/1. 73m2 LAB CHEMISTRY METHOD 03/01/2025 2:46 PM [facility] Comment:Calculation based on the Chronic Kidney Disease Epidemiology Collaboration (CKD-EPI) equation refit without adjustment for race. BUN/Creatinine Ratio 20.5 LAB CHEMISTRY METHOD 03/01/2025 2:46 PM [facility] Calcium 9.5 8.5 - 10.5 mg/dL LAB CHEMISTRY METHOD 03/01/2025 2:46 PM [facility] AST (SGOT) 28 10 - 42 unit/L LAB CHEMISTRY METHOD 03/01/2025 2:46 PM [facility] ALT (SGPT) 39 10 - 60 unit/L LAB CHEMISTRY METHOD 03/01/2025 2:46 PM [facility] Alkaline Phosphatase 71 42 - 121 unit/L LAB CHEMISTRY METHOD 03/01/2025 2:46 PM [facility] Total Protein 7.9 6.0 - 8.0 g/dL LAB CHEMISTRY METHOD 03/01/2025 2:46 PM [facility] Albumin 4.1 3.2 - 5.0 g/dL LAB CHEMISTRY METHOD 03/01/2025 2:46 PM EDT [facility] Total Bilirubin 0.7 0.0 - 1.4 mg/dL LAB CHEMISTRY METHOD 03/01/2025 2:46 PM EDT [facility] Blood Venous blood specimen / Unknown Venipuncture / Unknown 03/01/2025 12:23 PM EDT 03/01/2025 12:23 PM EDT us Adrian Sánchez MD LAB BLOOD ORDERABLES Final Result [facility] [address] [place] [address], * Depression Screening (03/04/2023) Depression Screening abstracted Historical Provider HEALTH MAINTENANCE Final Result * Hepatitis C Screening (06/10/2016) Hepatitis C Screening abstracted Historical Provider HEALTH MAINTENANCE Final Result from Last 3 Months or Most Recently Relevant to Health Maintenance Insurance [employer] MEDICAID - [place] Care Teams Refrigeration Brazer/Solderer Relationship Specialty Start Date End Date Adrian Sánchez MD [address] [place] [address] PCP - General Internal Medicine 11/18/21
--- OUTSIDE RECORDS SUMMARY | 2025-03-15 09:48 | XMS_ITS | Encounter Summary ---
Author Organization [facility] Address [id number] [place] [id number] Care Team Providers Care Pick Pulling Machine Operator Name Role Phone Adrian Sánchez MD Primary Care Provider [phone] Encounter Details Date Type Department Care Team (Late Contact Info) Description 03/01/2025 Results Follow-Up [address] [phone] Adrian Sánchez MD [address] [place] [address] Social History Tobacco Use Types Packs/Day Years [...] on file documented as of this encounter Plan of Treatment Upcoming Encounters Date Type Department Care Team (Late Contact Info) Description 04/23/2025 11:00 AM EST Office Visit Adult [address] [phone] Shannan Cunha PA [address] [place] [address] documented as of this encounter Visit Diagnoses Not on filedocumented in this encounter Additional Health Concerns Assessment Noted Time PHQ-9 Depression Total Score: 1 12/21/19 25 11:42 AM EDT A fall risk assessment has been complete d for the patient 12/20/2024 11:40 AM EDT documented as of this encounter Care Teams Pick Pulling Machine Operator Relationship Specialty Start Date End Date Adrian Sánchez MD [address] [place] [address] PCP - General Internal Medicine 11/18/21 documented as of this encounter
== END 2025-03-15 09:59 | disposition home or self-care (01) ==
LOC: HO.HUSH 09:01
PROVIDERS: PCP Internal Medicine; Visit Provider Urology
DX: C61 Malignant neoplasm of prostate (principal); N32.0 Bladder-neck obstruction
CPT/HCPCS: 99214; G2211

== ENCOUNTER 2025-04-06 20:50 | Emergency (ER) | payer OTHER, SELFPAY ==
--- NOTE | ~2025-04-06 | CT_ITS ---
CLINICAL HISTORY: trauma CT cervical spine without contrast Comparison: None provided Findings: Minimal convex left lower cervical curvature. There is reversal of the normal cervical lordosis throughout the cervical spine with mild generalized kyphosis. There is 2 mm of anterolisthesis of C3 on C4 and C4 on C5. No fracture or prevertebral soft tissue swelling. Moderate to severe multilevel degenerative disc disease and degenerative facet disease throughout the cervical spine. Upper airway is patent. No apical pneumothorax. Dense vascular calcification of the carotid arteries. IMPRESSION: 1. No acute fracture. 2. Findings suggestive of muscle spasm. 3. Moderate to severe multilevel degenerative change. This document has been electronically signed by: Meek Blackwood MD on 04/06/2025 22:29:08
--- NOTE | ~2025-04-06 | CT_ITS ---
CLINICAL HISTORY: trauma CT head without contrast Comparison: None provided Findings: There is age-appropriate atrophy. The size and shape of the ventricular system is within normal limits for this degree of atrophy. Mild low attenuation seen within the deep white matter. Jung-white differentiation is well preserved. No midline shift or mass effect. No intracranial hemorrhage. No calvarial fractures. Soft tissue swelling of the left supraorbital and left frontal scalp. IMPRESSION: 1. No fracture or intracranial hemorrhage. 2. Left frontal scalp contusion. This document has been electronically signed by: Meek Blackwood MD on 04/06/2025 22:28:40
[2025-04-06 20:56] VITALS: BP 134/80; PULSE 68; O2SAT 98
[2025-04-06 20:57] VITALS: BP 153/80; PULSE 67; RESP 16; TEMP 36.6; O2SAT 97; BMI 24.4
[2025-04-06 20:59] VITALS: BP 153/80; PULSE 67; RESP 16; TEMP 36.6; O2SAT 97
--- NOTE | 2025-04-06 21:10 | MHC.EDTECH ---
EKG and blood work nod needed per provider
[2025-04-06] MEDS: Lidocaine HCl 1%/Epi 1:100,000 10 ML VIAL INFILTRATI ×2 (21:27→23:41)
--- NOTE | 2025-04-06 22:33 | ED.GENADULT ---
HPI - General Adult General Chief complaint: Fall Stated complaint: ETOH w/ fall LAC L eyelid needs stitches -thinners Time Seen by Provider: 04/06/25 21:03 Source: patient Limitations: no limitations History of Present Illness ED Provider: Abi Forrest PA-C HPI narrative: 79-year-old male with a history of hyperlipidemia, diabetes, prostate cancer, who presents after mechanical fall. Patient admits to drinking alcohol throughout the day. He states he got out of his vehicle to ?urinate?, he tripped and fell, falling forward. Patient has sustained a laceration to the forehead. Tetanus vaccine up-to-date. The patient does not use blood thinners. He denies neck pain, headache, dizziness nausea vomiting. The patient has no physical concerns or complaints other than for the laceration. Related Data Home Medications ?Medication ?Instructions ?Recorded ?Confirmed acetaminophen 650 mg 650 mg PO TID 12/03/23 tablet,extended release atorvastatin 20 mg tablet 20 mg PO DAILY 12/03/23 cholecalciferol (vitamin D3) 50 50 mcg PO DAILY 12/03/23 mcg (2,000 unit) tablet fenofibrate 54 mg tablet 54 mg PO DAILY 12/03/23 melatonin 5 mg tablet 5 mg PO BEDTIME 12/03/23 metformin 500 mg tablet,extended 500 mg PO DAILY 03/15/24 release 24 hr tiotropium bromide 18 mcg capsule 1 cap inhalation DAILY 03/15/24 with inhalation device Allergies Allergy/AdvReac Type Severity Reaction Status Date / Time pentazocine (From TALWIN) Allergy Severe PARANOIA/AN Verified 04/06/25 21:02 XIETY shellfish derived (SHELLFISH Allergy Severe ANAPHYLAXIS Verified 04/06/25 21:02 DERIVED) shellfish Allergy Unknown Unknown Uncoded 04/06/25 21:02 Talwin Allergy Unknown Unknown Uncoded 04/06/25 21:02 Review of Systems Review of Systems: Yes all other systems are reviewed and are negative Constitutional: Constitutional: Denies fatigue, Denies fever(s) and Denies headache(s) ENT: Denies dizziness, Denies headache(s) and Denies neck pain Cardiovascular: Cardiovascular: Denies chest pain, Denies syncope and Denies dyspnea Respiratory: Respiratory: Denies dyspnea Gastrointestinal: Gastrointestinal: Denies nausea and Denies vomiting Musculoskeletal: Musculoskeletal: Denies back pain and Denies neck pain Neurologic: Denies dizziness, Denies syncope and Denies headache(s) Endocrine: Endocrine: Denies fatigue [facility] Past Medical History Attestation statement: The following information was validated with the patient. Social History Social History Patient Tobacco Use Status: Never used Tobacco Smoked in Last 30 Days: No Use of substances other than those prescribed or required for medical reasons: No Advance Directives: No Advance Directives Information Provided: Yes Do you have a plan to hurt others: No Plan Physical Exam ED Vital Signs: Vital Signs - 24 hr 04/06/25 20:57 04/06/25 20:59 04/06/25 22:49 Temperature 97.9 F 97.9 F 98.4 F Pulse Rate 67 67 68 Respiratory Rate 16 16 16 Blood Pressure 153/80 H 153/80 H 124/71 Pulse Oximetry 97 97 96 Oxygen Delivery Method Room Air Room Air Room Air BMI result Body Mass Index 24.4 Const Other: Alert, left periorbital ecchymosis, linear laceration measuring approximately 7 cm in length deep to subcu tissue, not bleeding at this time Orientation/consciousness: patient oriented x3 Resp Effort & Inspection: normal respiratory effort Cardio Other: Normal peripheral perfusion Skin Other: Warm dry no rash Neuro General: patient oriented x3, gait normal, no focal motor deficits and CN's II-XI intact bilaterally Psych Other: Cooperative Medications Administered Discontinued Medications Generic Name Dose Route Start Last Admin Trade Name Robbieq PRN Reason Stop Dose Admin Lidocaine/Epinephrine 10 ml 04/06/25 21:06 04/06/25 21:27 Lidocaine Hcl 1%/Epi 1:100,000 10 Ml Vial INFILTRATI 04/06/25 21:07 10 ml ONCE ONE Administration Lidocaine/Epinephrine 10 ml 04/06/25 23:38 04/06/25 23:41 Lidocaine Hcl 1%/Epi 1:100,000 10 Ml Vial INFILTRATI 04/06/25 23:39 10 ml ONCE ONE Administration Procedures Laceration Laceration 1: Site: face Side (If applicable): left Size (cm): 7 Description: linear Depth: simple, single layer Local Anesthetic: lidocaine 1% and with epi Pre-repair: irrigated extensively Skin layer closed with: nylon Size (cm): 5-0 Number of sutures: 13 Technique: simple, interrupted Laceration 2: Site: hand Side (If applicable): right Size (cm): 2 Description: irregular Depth: simple, single layer Local Anesthetic: lidocaine 1% and with epi Amount of anesthesia used (mL): 3 Pre-repair: irrigated extensively Skin layer closed with: nylon Size (cm): 3-0 Number of sutures: 4 Technique: simple, interrupted Medical Decision Making Medical Decision Making MDM Narrative: 79-year-old male with a history of hyperlipidemia, diabetes, prostate cancer, who presents after mechanical fall. Patient admits to drinking alcohol throughout the day. He states he got out of his vehicle to ?urinate?, he tripped and fell, falling forward. Patient has sustained a laceration to the forehead. Tetanus vaccine up-to-date. The patient does not use blood thinners. He denies neck pain, headache, dizziness nausea vomiting. The patient has no physical concerns or complaints other than for the laceration. Problem: Age, intoxication History: Per patient I have considered the following differential diagnoses: Skull fracture, intracranial hemorrhage, laceration, contusion, concussion, cervical spine injury, Plan: Patient admits to drinking, he is not a reliable historian, at this point he has no concerning symptoms for potential intracranial hemorrhage, he is neurologically intact, he is not on a blood thinner. We will be scanning his head and neck. The lacerations we will require simple repair. His tetanus is up-to-date. I will only obtain screening labs in the event that he has sustained a serious injury, and requires further assessment. I have independently reviewed the following tests: CT brain:MPRESSION: 1. No fracture or intracranial hemorrhage. 2. Left frontal scalp contusion. CT cervical spine:IMPRESSION: 1. No acute fracture. 2. Findings suggestive of muscle spasm. 3. Moderate to severe multilevel degenerative change. Differential Diagnosis Differential Diagnoses: The differential diagnosis associated with the presentation includes See [facility] Admission/Observation Consideration of admission/observation: Escalation of care including admission/observation considered Not applicable Radiology Impression Discussion of test interpretation with radiology: I have reviewed the radiologist's reading. Discharge Plan Discharge Clinical Impression: Periorbital ecchymosis of right eye Alcohol intoxication Qualifiers: Complication of substance-induced condition: with unspecified complication Qualified Code(s): F10.929 - Alcohol use, unspecified with intoxication, unspecified Forehead laceration Qualifiers: Encounter type: initial encounter Qualified Code(s): S01.81XA - Laceration without foreign body of other part of head, initial encounter Laceration of right thumb Qualifiers: Encounter type: initial encounter Damage to nail status: without damage Foreign body presence: without foreign body Qualified Code(s): S61.011A - Laceration without foreign body of right thumb without damage to nail, initial encounter Patient Disposition: Home, Self-Care Instructions: Laceration (ED), Black Eye (ED) Additional Instructions: You had a CT scan of your head and cervical spine, you did not sustain an acute injury other than the lacerations of the forehead in the hand. Thirteen stitches were used to repair the forehead laceration, 4 stitches were used to repair the hand laceration. They all can be removed in 7 days. You can return to the emergency room for suture removal, or follow up with your primary care. Watch for signs of infection which would include redness, swelling, warmth, drainage from either site or fever. If you develop any of these symptoms, seek medical attention. Prescriptions: No Action fenofibrate 54 mg tablet 54 mg PO DAILY melatonin 5 mg tablet 5 mg PO BEDTIME cholecalciferol (vitamin D3) 50 mcg (2,000 unit) tablet 50 mcg PO DAILY atorvastatin 20 mg tablet 20 mg PO DAILY acetaminophen 650 mg tablet extended release 650 mg PO TID tiotropium bromide 18 mcg capsule, w/inhalation device 1 cap inhalation DAILY metformin 500 mg tablet extended release 24 hr 500 mg PO DAILY Print Language: Somali
[2025-04-06 22:49] VITALS: BP 124/71; PULSE 68; RESP 16; TEMP 36.9; O2SAT 96
[2025-04-07 00:19] VITALS: BP 124/71; PULSE 68; RESP 16; TEMP 36.9; O2SAT 96
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
--- OUTSIDE RECORDS SUMMARY | 2025-04-07 01:10 | XMS_ITS | Data Portability ---
Author Organization [place] - [facility], Allergy Address [address] [address] Care Team Providers Care Pharmacology Professor Name Role Phone MICHELE LEBLANC Primary Care Provider Assessment Encounter Date Assessment Date Assessment LastModified by Organization Details LastModified Time 03/15/2025 03/15/2025 The patient demonstrates hearing loss at higher frequencies, which is consistent with age-related changes. His eardrum appears healed from a prior puncture. Wax removal was performed during the visit to improve hearing clarity. The patient is advised to continue using hbut-qgr-urgszt r wax-softening drops to manage earwax buildup. [...] By Organization Details Last Modified Time 03/15/2025 64840 Continue using yjcn-nvw-mckkmqh wax-softening drops as recommended. 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 100, [place], [address] , [place] - [facility] 5 13:32:35 Impacted cerumen of bilateral ears 938111879072 9108 Active 2024 TAVO CHUA MD [address] [place] [address],[facility] 100, [place], [address] , [place] - [facility] 5 14:22:23 Hoarse 82193116 Active 2024 TAVO CHUA MD [address] [place] [address],[place] [address], [place], [address] , [facility] 5 14:22:29 Problem Notes None recorded. Procedures Surgical History Date Name Laterality Status Provider Name and Address Organization Details Recorded Time 03/15/2025 Comp Audio with Tymps - 30917 & 63354 completed TIM JUNG MA, CCC-A [address] [place] [address],[place] [address], [place], [address], [facility] 03/15/2025 13:32:43 03/15/2025 Wax_DP completed TAVO CHUA MD [address] [place] [address],[place] [address], [place], [address], [facility] 03/15/2025 14:21:43 Imaging Results None recorded. Procedure Notes None recorded. Medical Equipment None Reported. Allergies Allergen ID Allergen Name Allergen Category Reaction Reaction Severity Criticality Documentation Date Start Date Code Code System Note Provider Name and Address Organization Details Recorded Time 312181 Talwin medicatio n other Not available Not available 10/05/2023 8002 RxNorm React ion: Unkno wn; Not Available [facility] 01:11:38 Medications Name Sig Start Date Stop Date Status Note LastModified by Organization Details LastModified Time celecoxib 200 mg capsule active Medicati on ID: [id number] B rand Name: celecoxi b Send Method: [...] 80 mg tablet active Medicati on ID: [id number] D uration Value: 30 Brand Name: atorvast atmushtaq Sen d Method: E-Prescr ibed Sub s [...] mg capsule 03/15 completed Medicati on ID: [id number] D uration Value: 30 Brand Name: tamsulos in Send Method: E-Prescr ibed Sub s Allowed: subs OK Medic ationGen ericName : tamsulos in Not Available Not Available Not Available diclofena c sodium 75 mg tablet,de layed release active Medicati on ID: [id number] D uration Value: 30 Brand Name: diclofen [...] Updated DateTime 03/15/2025 180.34 cm 27.2 kg/m2 17268.51 g LUZ PEREZ [facility] 03/15/2025 14:03:41 Social History None recorded. Functional Status None recorded. Mental Status None recorded. Family History Nothing Reported. Medical History No medical history recorded. Past Encounters Encounter ID Performer Location Encounter Start Date Encounter Closed Date Diagnosis/Indication Diagnosis SNOMED-CT Code Diagnosis ICD10 Code Diagnosis IMO Codes Diagnosis Note [id number] TAVO CHUA MD [facility] [address] [address] 03/15/2025 12:50:52 03/15/2025 15:27:55 Sensorineural hearing loss of bilateral ears 303656101 H90.3 [id number] Audiologic al evaluation results: Right & Left ears: Normal hearing thru 2000Hz dropping to a moderate- severe SNHL with excellent word recognitio n. Tympanomet ry: Right Ear:Type Ad (1.3) Left Ear:Type A (2.2) Impacted c erumen of bilateral ears [id number] 562323 H61.23 736944 Hoarse 89278332 R49.0 908882 Health Concerns Section Related Observation LastModified by Organization Detai ls LastModified Time None Recorded Concern Status LastModified by Organization Details LastModified Time None Recorded Advance Directives Directive None Recorded Payers Insurance Date Sequence Insurance Name Policy Number Policy Alejo Covered Member ID Alejo Member ID Guarantor Name 03/15/2025 2 [place] [facility] Cirilo Altamirano [id number] Cirilo Altamirano 03/15/2025 1 [place] [facility] Cirilo Altamirano [id number] Cirilo Altamirano 03/15/2025 1 [facility] (MEDICARE REPLACEMENT PPO) Cirilo Altamirano [id number] Cirilo Altamirano Notes Date Note Type Note Provider Name and Address Organization Details Recorded Time 03/15/2025 text/html hearing loss hoarse hx of vocal nodule/polyp excision in 2000 in [place] - stopped 40 yrs ago COPD PV 07/27/22 Zach FOL benign. hoarse related to poor breath support. declined referral to [facility] Cirilo Altamirano is a 79-year-old male who [...] has since healed. He has been using sxka-xbw-wwflhrv wax-softening drops as recommended by his primary care doctor. Additionally, he mentions a history of throat polyps and occasional throat discomfort, particularly after loud activities such as listening to the radio or yelling with friends. He expresses interest in follow-up for his throat concerns to ensure there is no worsening of his condition. TAVO CHUA MD [address] [place] [address], [place], [address], [facility] - [facility] 03/15/2025 14:22:56
== END 2025-04-07 00:19 | disposition home or self-care (01) ==
PROVIDERS: Emergency Provider Emergency Medicine; PCP Internal Medicine
DX: S01.81XA Laceration without foreign body of other part of head, initial encounter (principal); S61.011A Laceration without foreign body of right thumb without damage to nail, initial encounter; W01.0XXA Fall on same level from slipping, tripping and stumbling without subsequent striking against object, initial encounter; Y93.9 Activity, unspecified; Y92.9 Unspecified place or not applicable; Y99.9 Unspecified external cause status; F10.929 Alcohol use, unspecified with intoxication, unspecified
CPT/HCPCS: 12001; 12014; 70450; 72125; 99284; J2004

== ENCOUNTER → 2025-04-06 21:06 | Outpatient (BNV) | payer OTHER, SELFPAY | PROVIDERS: Emergency Provider Emergency Medicine; PCP Internal Medicine; Visit Provider Radiology Diagnostic Radiology | DX: S01.81XA Laceration without foreign body of other part of head, initial encounter (principal); W19.XXXA Unspecified fall, initial encounter | CPT/HCPCS: 70450; 72125 ==

== ENCOUNTER 2025-04-13 10:14 | Emergency (ER) | payer OTHER, SELFPAY ==
[2025-04-13 10:39] VITALS: BP 122/60; PULSE 64; RESP 18; TEMP 36.3; O2SAT 97; BMI 27.2
--- OUTSIDE RECORDS SUMMARY | 2025-04-13 11:29 | XMS_ITS | Clinical Summary ---
Author Organization [facility] Address [address] [place] [address] Phone Care Team Providers Care Note Teller Name Role Phone Adrian Sánchez MD Primary [...] spasms. 30 tablet 3 07/18/19 25 Active albuterol HFA (PROAIR HFA ; [...] THE MORNING 90 each 03/07/20 25 Active cyanocobalamin (VITAMIN B-12) 1,000 mcg tablet TAKE 1 TABLET (1,000 MCG TOTAL) BY MOUTH 3 (THREE) TIMES A WEEK. 36 tablet 03/19/20 25 Active cyanocobalamin (VITAMIN B-12) 1,000 mcg tablet TAKE 1 TABLET (1,000 MCG TOTAL) BY MOUTH 3 (THREE) TIMES A WEEK. 36 tablet 10/28/19 25 025 Discontinued Active Problems Problem Noted Date Diagnosed Date Alcohol use disorder 07/18/2024 Assessment & Plan (12/20/2024 12:32 PM EDT): Orders: Comprehensive metabolic panel; Future Basal cell carcinoma (BCC) of scalp 07/17/2024 Assessment & Plan (12/20/2024 12:32 PM EDT): Prostate cancer ([facility] V24, [facility] V28) 07/27 Assessment & Plan (12/20/2024 12:32 [...] negative. Primary insomnia 02/23/2017 Abdominal aortic aneurysm ([facility] V24) 04/22/20 16 Overview (02/21/2024): 3.2 cm 08/2018, 2.9 10/2020 (not aneurysmal) Last Assessment & Plan: This is been stable and has been followed by vascular surgery. Depression 01/02/2014 COPD (chronic obstructive pu lmonary disease) ([facility] V24, [facility] V28) 11/02/2013 Overview (02/21/2024): Last Assessment & [...] Care Team Description 03/12/2025 Telephone Adult Medicine [address] [address] Adrian Sánchez MD 03/01/2025 Results Follow-Up Adult Medicine [address] [phone] Adrian Sánchez MD from Last 3 Months Immunizations Immunization Administration Dates Next Due COVID-19 (Moderna/Spikevax) 12yo and older 01/29/2025 Influenza trivalent, 0.5mL ( Fluzone High-dose) 65yo and older 01/20/2025,01/21/2024,03/04/2023,01/02,02/06/2021,02/19/2020,02/14/2019 ,02/21/2018,02/23/2017 Influenza trivalent, with pr eservative (Fluzone; Afluria) 6mo and older 04/10/2016,04/09/2014,02/07/2013,03/15,02/24/2011 PAT/[employer] Safety SARS-CoV-2 COVID -19, vector-nr, rS-Ad26, preservative free [...] PROCEDURE: PROSTATE BRACHY W IODINE SEE; COMMENT: [facility]; rx for prostate cancer HIP ARTHROPLASTY [...] 11:00 AM EST Office Visit Adult Medicine [address] [id number] Shannan Cunha PA 4 [facility] [place] Health Maintenance Due Date Last Done Comments Hepatitis A Vaccines (1 of 2 - Risk 2-dose series) 1964 Social Influencers of Health Screening 04/25/2022 COVID-19 Vaccine ( season) 2025 01/29/2025, 01/30/2024, 03/07/2023, Additional history exists Falls Risk Assessment 12/20/2025 12/20/2024 Medicare Annual [...] 02/21, 02/01/2012 Depression Screening Completed 12/20/2024, 03/04/20 23 Influenza Vaccine Completed 01/20/2025, , 01/11/2024, Additional history exists RSV Immunization Adult Patients Completed 01/20/2025 HIB Vaccines Aged Out No longer eligi [...] hyperlipidemia Alcohol use disorder Prediabetes Prostate cancer ([facility] V24, [facility] V28) HEMOGLOBIN A1C Routine 03/01/2025 12:23 PM [...] LAB CHEMISTRY METHOD 03/01/2025 2:46 PM EDT [facility] Triglycerides 94 0 - 150 mg/dL LAB CHEMISTRY METHOD 03/01/2025 2:46 PM EDT [facility] HDL 48 >=40 mg/dL LAB CHEMISTRY METHOD 03/01/2025 2:46 PM EDT [facility] LDL Calculated 72 0 - 100 mg/dL LAB CHEMISTRY METHOD 03/01/2025 2:46 PM EDT [facility] Comment:Estimated LDL Calcul ated using equation: Total cholesterol - HDL cholesterol - (Triglycerides/5) VLDL Cholesterol Corey 18.8 mg/dL LAB CHEMISTRY METHOD 03/01/2025 2:46 PM EDT [facility] Non HDL Chol. (LDL+VLDL) 91 <145 mg/dL LAB CHEMISTRY METHOD 03/01/2025 2:46 PM EDT [facility] Chol/HDL Ratio 2.9 0.0 - 4.4 LAB CHEMISTRY METHOD 03/01/2025 2:46 PM EDT [facility] Blood Venous blood specimen / Unknown Venipuncture / Unknown 03/01/2025 12:23 PM EDT 03/01/2025 12:23 PM EDT Adrian Sánchez MD LAB BLOOD ORDERABLES Final Result Performing Organization Address [facility]/ZIP Co de Phone Number [facility] [address] [place] [address], * Prostate specific antigen diagnostic (03/01/2025 12:23 PM EDT) PSA <0.06 0.00 - 4.00 ng/mL LAB CHEMISTRY METHOD 03/01/2025 3:35 PM EDT [facility] Blood Venous blood specimen / Unknown Venipuncture / Unknown 03/01/2025 12:23 PM EDT 03/01/2025 12:23 PM EDT Narrative [facility] - 03/01/2025 3:35 PM EDT The Siemens Advia Centaur Chemiluminescent Immunoassay is used. Results obtained with different assay methods or kits cannot be used interchangeably. Results cannot be interpreted as absolute evidence of the presence or absence of malignant disease. Leon Daily MD LAB BLOOD ORDERABLES Final Re sult [facility] [address] [place] [address], * Hemoglobin A1c (03/01/2025 12:23 PM EDT) Hemoglobin A1C 5.5 <6.5 % LAB CHEMISTRY METHOD 03/01/2025 9:47 PM T [facility] Mean Bld Glu Estim. 111 mg/dL LAB CHEMISTRY METHOD 03/01/2025 9:47 PM [facility] Blood Venous blood specimen / Unknown Venipuncture / Unknown 03/01/2025 12:23 PM EDT 03/01/2025 12:23 PM EDT us Adrian Sánchez MD LAB BLOOD ORDERABLES Final Result [facility] [address] [place] [address], * Comprehensive metabolic panel (03/01/2025 12:23 PM EDT) Sodium 136 133 - 145 mmol/L LAB CHEMISTRY METHOD 03/01/2025 2:46 PM [facility] Potassium 4.3 3.5 - 5.5 mmol/L LAB CHEMISTRY METHOD 03/01/2025 2:46 PM [facility] Chloride 104 96 - 110 mmol/L LAB CHEMISTRY METHOD 03/01/2025 2:46 PM [facility] CO2 24 21 - 32 mmol/L LAB CHEMISTRY METHOD 03/01/2025 2:46 PM [facility] Anion Gap 8 3 - 11 LAB CHEMISTRY METHOD 03/01/2025 2:46 PM [facility] Glucose 83 70 - 100 mg/dL LAB CHEMISTRY METHOD 03/01/2025 2:46 PM [facility] BUN 18 5 - 25 mg/dL LAB CHEMISTRY METHOD 03/01/2025 2:46 PM [facility] Creatinine 0.88 0.70 - 1.30 mg/dL LAB CHEMISTRY METHOD 03/01/2025 2:46 PM [facility] eGFR 88 >=60 mL/min/1. 73m2 LAB CHEMISTRY METHOD 03/01/2025 2:46 PM T [facility] Comment:Calculation based on the Chronic Kidney Disease Epidemiology Collaboration (CKD-EPI) equation refit without adjustment for race. BUN/Creatinine Ratio 20.5 LAB CHEMISTRY METHOD 03/01/2025 2:46 PM [facility] Calcium 9.5 8.5 - 10.5 mg/dL LAB CHEMISTRY METHOD 03/01/2025 2:46 PM [facility] AST (SGOT) 28 10 - 42 unit/L LAB CHEMISTRY METHOD 03/01/2025 2:46 PM [facility] ALT (SGPT) 39 10 - 60 unit/L LAB CHEMISTRY METHOD 03/01/2025 2:46 PM [facility] Alkaline Phosphatase 71 42 - 121 unit/L LAB CHEMISTRY METHOD 03/01/2025 2:46 PM [facility] Total Protein 7.9 6.0 - 8.0 g/dL LAB CHEMISTRY METHOD 03/01/2025 2:46 PM [facility] Albumin 4.1 3.2 - 5.0 g/dL LAB CHEMISTRY METHOD 03/01/2025 2:46 PM [facility] Total Bilirubin 0.7 0.0 - 1.4 mg/dL LAB CHEMISTRY METHOD 03/01/2025 2:46 PM [facility] Blood Venous blood specimen / Unknown Venipuncture / Unknown 03/01/2025 12:23 PM EDT 03/01/2025 12:23 PM EDT us Adrian Sánchez MD LAB BLOOD ORDERABLES Final Result [facility] [address] [place] [address], * Depression Screening (03/04/2023) Depression Screening abstracted us Historical Provider HEALTH MAINTENANCE Final Result * Hepatitis C Screening (06/10/2016) Hepatitis C Screening abstracted us Historical Provider HEALTH MAINTENANCE Final Result from Last 3 Months or Most Recently Relevant to Health Maintenance Insurance [facility] [employer] [place]ICAID - [place] Care Teams Note Teller Relationship Specialty Start Date End Date Adrian Sánchez MD [address] [place] [address] PCP - General Internal Medicine 11/18/21
--- OUTSIDE RECORDS SUMMARY | 2025-04-13 11:29 | XMS_ITS | Data Portability ---
Author Organization [place] - [facility], Allergy Address [address] [address] Care Team Providers Care Diet Supervisor Name Role Phone MICHELE LEBLANC Primary Care Provider Assessment Encounter Date Assessment Date Assessment LastModified by Organization Details LastModified Time 03/15/2025 03/15/2025 The patient demonstrates hearing loss at higher frequencies, which is consistent with age-related changes. His eardrum appears healed from a prior puncture. Wax removal was performed during the visit to improve hearing clarity. The patient is advised to continue using bwsg-acd-coyeji r wax-softening drops to manage earwax buildup. [...] By Organization Details Last Modified Time 03/15/2025 88099 Continue using bywy-jgn-ogsntfi wax-softening drops as recommended. Schedule a follow-up [...] Address Organization Details Recorded Time Singers' nodes 92153538 Active 2015 Nodules of vocal cords; Note: Date Diagnose d: 6 11:07 AM (J38.2) Not Available [facility] 4 03:08:11 Bilateral diffuse otitis externa 206672635006 9102 Active 2022 Diffuse otitis externa, bilatera l; Note: Date Diagnose d: 07/27/2022 1:56 PM (H60.313 ) Not Available [facility] 4 03:08:11 Dysphonia 07534880 Active 2022 Hoarsene ss; Note: Date Diagnose d: 07/27/2022 1:56 PM (R49.0) Not Available [facility] 4 03:08:12 Sensorine ural hearing loss of bilateral ears 873035426 Active 2024 TIM JUNG MA, CCC-A 100 [facility] 100, [place], [address] , [place] - [facility] 5 13:32:35 Impacted cerumen of bilateral ears 849193812952 9108 Active 2024 TAVO CHUA MD [address] [place] [address],[facility] 100, [place], [address] , [place] - [facility] 5 14:22:23 Hoarse 26444000 Active 2024 TVAO CHUA MD [address] [place] [address],[place] [address], [place], [address] , [facility] 5 14:22:29 Problem Notes None recorded. Procedures Surgical History Date Name Laterality Status Provider Name and Address Organization Details Recorded Time 03/15/2025 Comp Audio with Tymps - 62719 & 80756 completed TIM JUNG MA, CCC-A [address] [place] [address],[place] [address], [place], [address], [facility] 03/15/2025 13:32:43 03/15/2025 Wax_DP completed TAVO CHUA MD [address] [place] [address],[place] [address], [place], [address], [facility] 03/15/2025 14:21:43 Imaging Results None recorded. Procedure Notes None recorded. Medical Equipment None Reported. Allergies Allergen ID Allergen Name Allergen Category Reaction Reaction Severity Criticality Documentation Date Start Date Code Code System Note Provider Name and Address Organization Details Recorded Time 624063 Talwin medicatio n other Not available Not available 10/05/2023 8002 RxNorm React ion: Unkno wn; Not Available [facility] 01:11:38 Medications Name Sig Start Date Stop Date Status Note LastModified by Organization Details LastModified Time celecoxib 200 mg capsule active Medicati on ID: [id number] B rand Name: celecoxi b Send Method: [...] 80 mg tablet active Medicati on ID: [id number] D uration Value: 30 Brand Name: atorvast [...] mg capsule 03/15 completed Medicati on ID: [id number] D uration Value: 30 Brand Name: tamsulos in Send Method: E-Prescr ibed Sub s Allowed: subs OK Medic ationGen ericName : tamsulos in Not Available Not Available Not Available diclofena c sodium 75 mg tablet,de layed release active Medicati on ID: 539352 D uration Value: 30 Brand Name: diclofen [...] Updated DateTime 03/15/2025 180.34 cm 27.2 kg/m2 35767.51 g LUZ PEREZ [facility] 03/15/2025 14:03:41 Social History None recorded. Functional Status None recorded. Mental Status None recorded. Family History Nothing Reported. Medical History No medical history recorded. Past Encounters Encounter ID Performer Location Encounter Start Date Encounter Closed Date Diagnosis/Indication Diagnosis SNOMED-CT Code Diagnosis ICD10 Code Diagnosis IMO Codes Diagnosis Note [id number] TAVO CHUA MD [facility] [address] [address] 03/15/2025 12:50:52 03/15/2025 15:27:55 Sensorineural hearing loss of bilateral ears 874192032 H90.3 13019420 Audiologic al evaluation results: Right & Left ears: Normal hearing thru 2000Hz dropping to a moderate- severe SNHL with excellent word recognitio n. Tympanomet ry: Right Ear:Type Ad (1.3) Left Ear:Type A (2.2) Impacted c erumen of bilateral ears [id number] 693245 H61.23 233175 Hoarse 29107506 R49.0 405171 Health Concerns Section Related Observation LastModified by Organization Detai ls LastModified Time None Recorded Concern Status LastModified by Organization Details LastModified Time None Recorded Advance Directives Directive None Recorded Payers Insurance Date Sequence Insurance Name Policy Number Policy Alejo Covered Member ID Alejo Member ID Guarantor Name 03/15/2025 2 [place] [facility] Cirilo Altamirano [id number] Cirilo Altamirano 03/15/2025 1 [place] [facility] Cirilo Altamirano [id number] Cirilo Altamirano 03/15/2025 1 [facility] (MEDICARE REPLACEMENT PPO) Cirilo Altamirano [id number] Cirilo Altamirano Notes Date Note Type Note Provider Name and Address Organization Details Recorded Time 03/15/2025 text/html hearing loss hoarse hx of vocal nodule/polyp excision in 2000 in [place] tobacco - stopped 40 yrs ago COPD PV 07/27/22 Zach FOL benign. hoarse related to poor breath support. declined referral to [facility] Cirilo Altamirano is a 79-year-old male who [...] has since healed. He has been using ubcb-kvw-xormgxe wax-softening drops as recommended by his primary care doctor. Additionally, he mentions a history of throat polyps and occasional throat discomfort, particularly after loud activities such as listening to the radio or yelling with friends. He expresses interest in follow-up for his throat concerns to ensure there is no worsening of his condition. TAVO CHUA MD [address] [place] [address], [place], [address], [facility] - [facility] 03/15/2025 14:22:56
--- OUTSIDE RECORDS SUMMARY | 2025-04-13 11:29 | XMS_ITS | Continuity of Care Document ---
Author Organization [place] - [facility], [facility] Address [address] [place] [address] Care Team Providers Care Re Examiner Name Role Phone MICHELE LEBLANC Primary Care Provider Assessment Encounter Date Assessment Date Assessment LastModified by Organization Details LastModified Time 03/15/2025 03/15/2025 The patient demonstrates hearing loss at higher frequencies, which is consistent with age-related changes. His eardrum appears healed from a prior puncture. Wax removal was performed during the visit to improve hearing clarity. The patient is advised to continue using gomt-csw-vzettx r wax-softening drops to manage earwax buildup. [...] By Organization Details Last Modified Time 03/15/2025 28813 Continue using fqud-cor-uzkvuyx wax-softening drops as recommended. 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, [place], [address] , [place] - [facility] 5 13:32:35 Impacted cerumen of bilateral ears 923926814951 9108 Active 2024 TAVO CHUA MD [address] [facility], [place], [address] , [place] - [facility] 5 14:22:23 Hoarse 28257472 Active 2024 TAVO CHUA MD [address] [address], [place], [address] , [facility] 14:22:29 Problem Notes None recorded. Procedures Surgical History Date Name Laterality Status Provider Name and Address Organization Details Recorded Time 03/15/2025 Comp Audio with Tymps - 20163 & 99491 completed TIM JUNG MA, CCC-A [address] [place] [address], [place], [address], [facility] 03/15/2025 13:32:43 03/15/2025 Wax_DP completed TAVO CHUA MD [address] [place] [address], [phone], [facility] 03/15/2025 14:21:43 Imaging Results None recorded. Procedure Notes None recorded. Medical Equipment None Reported. Allergies Allergen ID Allergen Name Allergen Category Reaction Reaction Severity Criticality Documentation Date Start Date Code Code System Note Provider Name and Address Organization Details Recorded Time 833052 [facility] medicatio n other Not available Not available 10/05/2023 8002 RxNorm React ion: Unkno wn; Not Available [facility] 01:11:38 Medications Name Sig Start Date Stop Date Status Note LastModified by Organization Details LastModified Time celecoxib 200 mg capsule active Medicati on ID: 061704 B rand Name: celecoxi b Send Method: [...] 80 mg tablet active Medicati on ID: 725384 D uration Value: 30 Brand Name: atorvast [...] mg capsule 03/15 completed Medicati on ID: 046737 D uration Value: 30 Brand Name: tamsulos in Send Method: E-Prescr ibed Sub s Allowed: subs OK Medic ationGen ericName : tamsulos in Not Available Not Available Not Available diclofena c sodium 75 mg tablet,de layed release active Medicati on ID: 926004 D uration Value: 30 Brand Name: diclofen [...] Updated DateTime 03/15/2025 180.34 cm 27.2 kg/m2 41391.51 g [facility] 03/15/2025 14:03:41 Social History None recorded. Functional Status None recorded. Mental Status None recorded. Family History Nothing Reported. Medical History No medical history recorded. Past Encounters Encounter ID Performer Location Encounter Start Date Encounter Closed Date Diagnosis/Indication Diagnosis SNOMED-CT Code Diagnosis ICD10 Code Diagnosis IMO Codes Diagnosis Note [id number] TAVO CHUA MD [facility] [address] [address] 03/15/2025 12:50:52 03/15/2025 15:27:55 Sensorineural hearing loss of bilateral ears 130368640 H90.3 [id number] Audiologic al evaluation results: Right & Left ears: Normal hearing thru 2000Hz dropping to a moderate- severe SNHL with excellent word recognitio n. Tympanomet ry: Right Ear:Type Ad (1.3) Left Ear:Type A (2.2) Impacted c erumen of bilateral ears 7817133717 617228 H61.23 961874 Hoarse 99636512 R49.0 344422 Health Concerns Section Related Observation LastModified by Organization Detai ls LastModified Time None Recorded Concern Status LastModified by Organization Details LastModified Time None Recorded Payers Encounter Date Sequence Insurance Name Policy Number Policy Alejo Covered Member ID Alejo Member ID Guarantor Name 03/15/2025 2 [place] [facility] Cirilo Altamirano [id number] Cirilo Altamirano 03/15/2025 1 [facility] (MEDICARE REPLACEMENT PPO) Cirilo Altamirano [id number] Cirilo Altamirano Notes Date Note Type Note Provider Name and Address Organization Details Recorded Time 03/15/2025 text/html hearing loss hoarse hx of vocal nodule/polyp excision in 2000 in [place] tobacco - stopped 40 yrs ago COPD PV 07/27/22 Zach FOL benign. hoarse related to poor breath support. declined referral to COMPENSATION/BENEFITS SPECIALIST Cirilo Altamirano is a 79-year-old male who [...] has since healed. He has been using uvin-qvi-uyazviu wax-softening drops as recommended by his primary care doctor. Additionally, he mentions a history of throat polyps and occasional throat discomfort, particularly after loud activities such as listening to the radio or yelling with friends. He expresses interest in follow-up for his throat concerns to ensure there is no worsening of his condition. TAVO CHUA MD [address] [place] [address], [phone], [facility] - [facility] 03/15/2025 14:22:56
--- OUTSIDE RECORDS SUMMARY | 2025-04-13 11:29 | XMS_ITS | Encounter Summary ---
Author Organization [facility] Address [address] [place] [address] Care Team Providers Care Is Analyst Name Role Phone Adrian Sánchez MD Primary Care Provider [phone] Encounter Details Date Type Department Care Team (Late Contact Info) Description 03/01/2025 Results Follow-Up [address] [phone] Adrian Sánchez MD [address] [place] [address] Social History Tobacco Use Types Packs/Day Years [...] 04/23/2025 11:00 AM EST Office Visit Adult [address] [phone] Shannan Cunha PA [address] [place] [address] documented as of this encounter Visit Diagnoses Not on filedocumented in this encounter Additional Health Concerns Assessment Noted Time PHQ-9 Depression Total Score: 1 12/21/19 25 11:42 AM EDT A fall risk assessment has been complete d for the patient 12/20/2024 11:40 AM EDT documented as of this encounter Care Teams Is Analyst Relationship Specialty Start Date End Date Adrian Sánchez MD [address] [place] [address] PCP - General Internal Medicine 11/18/21 documented as of this encounter
--- OUTSIDE RECORDS SUMMARY | 2025-04-13 11:29 | XMS_ITS | Clinical Summary ---
Author Organization [facility] Address [address] [place] [address] Care Team Providers Care Supervisor [place] Name Role Phone Unavailable Primary Care Provider [...] Screening 05/24/2024 Depression Screening and Follow-Up 05/24/2024 Fall Risk Screening 05/24/2024 Health Care Proxy Review 05/24/2024 Social Drivers of Health Annual Screening 05/24/2024 Influenza Vaccine (#1) 2024 , 03/04/2023, 01/02/2022, Additional history exists COVID-19 Vaccine ( season) 2025 01/30/2024, 03/07/2023, 01/02/2022, Additional history exists DTaP,Tdap,and Td Vaccines (4 - Td or Tdap) 07/18/2034 07/18/2024, 02/06/2021, 12/10/2010 Pneumococcal Vaccine: 50+ Years Completed 03/31/2022, 06/08/2015, 06/08/2014, Additional history exists Zoster Vaccines Completed 07/29/2022, 02/21, 02/01/2012 Hepatitis B Vaccines Aged Out No long er eligible based on patient's age to complete this topic Insurance [address] [place] [id number] [facility]
--- NOTE | 2025-04-13 11:33 | ED.GENADULT ---
HPI - General Adult General Chief complaint: Wound/Laceration Stated complaint: stitch removal Time Seen by Provider: 04/13/25 10:41 Source: patient Mode of arrival: ambulatory Limitations: no limitations History of Present Illness ED Provider: Sanju Huerta HPI narrative: 79 yold male presents to the ED for left eye suture removal and right thumb laceration. patient denies any redness, pus discharge, foul odor, flank pain, fever, and chills. Related Data Home Medications ?Medication ?Instructions ?Recorded ?Confirmed acetaminophen 650 mg 650 mg PO TID 12/03/23 tablet,extended release atorvastatin 20 mg tablet 20 mg PO DAILY 12/03/23 cholecalciferol (vitamin D3) 50 50 mcg PO DAILY 12/03/23 mcg (2,000 unit) tablet fenofibrate 54 mg tablet 54 mg PO DAILY 12/03/23 melatonin 5 mg tablet 5 mg PO BEDTIME 12/03/23 metformin 500 mg tablet,extended 500 mg PO DAILY 03/15/24 release 24 hr tiotropium bromide 18 mcg capsule 1 cap inhalation DAILY 03/15/24 with inhalation device Allergies Allergy/AdvReac Type Severity Reaction Status Date / Time pentazocine (From [facility]WIN) Allergy Severe PARANOIA/AN Verified 04/13/25 10:40 XIETY shellfish derived (SHELLFISH Allergy Severe ANAPHYLAXIS Verified 04/13/25 10:40 DERIVED) shellfish Allergy Unknown Unknown Uncoded 04/06/25 21:02 [place]win Allergy Unknown Unknown Uncoded 04/06/25 21:02 Review of Systems Review of Systems: Left [place] removal Yes all other systems are reviewed and are negative [facility] Social History Social History Patient Tobacco Use Status: Never used Tobacco Advance Directives: No Advance Directives Information Provided: Yes Physical Exam ED Vital Signs: Vital Signs - 24 hr 04/13/25 10:39 Temperature 97.3 F Pulse Rate 64 Respiratory Rate 18 Blood Pressure 122/60 Pulse Oximetry 97 Oxygen Delivery Method Room Air BMI result Body Mass Index 27.2 Const General: cooperative, healthy appearing, comfortable, no acute distress, well developed, alert and awake Orientation/consciousness: patient oriented x3 HENMT Head: Yes normal to inspection, Yes No palpable skull fracture present, Yes normocephalic and Yes atraumatic Head images:  1. positive for sutures. negative for erythema, pus discharges, foul odor, fever, red streaks, ecchymosis, or deformities. Eyes General: appearance normal, both eyes and all related structures Neck Neck: Yes normal visual inspection, Yes full ROM, Yes no lymphadenopathy, Yes no meningeal signs, Yes trachea midline, Yes supple, No anterior neck swelling and No tender Chest Chest palpation & inspection: normal inspection of the chest and normal palpation of entire chest wall Resp Effort & Inspection: normal respiratory effort and able to speak in complete sentences Auscultation: clear to auscultation bilaterally Cardio Jugular venous distension: no JVD Heart sounds: S1 normal heart sound present and S2 normal heart sound present GI Inspection: Yes normal to inspection Palpation (GI): Soft to palpation, not firm, nontender, no guarding and not rigid General: Yes no CVA tenderness Back/Spine/Pelvis Back: no CVA tenderness and No back tenderness Skin General skin exam: no rashes or lesions noted Neuro General: patient oriented x3, gait normal, tone normal, moves all extremities, Normal light touch and pain sensation, no meningeal signs, no focal motor deficits, CN's II-XI intact bilaterally and normal sensation to monofilament Extrem General: Yes normal to inspection, Yes full ROM and Yes capillary refill normal Hand/finger images:  1. Sutures present. Negative for swelling, ecchymosis, deformity, pus discharge, foul odor, or erythema. Rest of extremity normal. Motor/neuro/vascular exam intact Psych Appearance: grossly normal, well kempt and not disheveled Medical Decision Making Medical Decision Making MDM Narrative: 79 yold male presents to the ED for 13 sutures removed from left eye lid and right thumb 4 stures removed. Are cleaned with steriole saline and beta idione. Patient explained worrisome signs and informed to retun immeidlatley. no signs of infection. Differential Diagnosis Differential Diagnoses: The differential diagnosis associated with the presentation includes (suture removal) Admission/Observation Consideration of admission/observation: Escalation of care including admission/observation considered Independent Historian Clinical information obtained from an independent historian. History obtained from or confirmed by: Other (patient) Prescription Management I considered prescription management with: Pain Medication Discharge Plan Discharge Clinical Impression: Encounter for removal of sutures Patient Disposition: Home, Self-Care Instructions: Stitches Removal (ED) Additional Instructions: Recommend follow up with PC. Return to the ED for any swelling, redness pus discharge, fever, chills, redness, stiffness, or any other concerning symtpoms. Prescriptions: No Action fenofibrate 54 mg tablet 54 mg PO DAILY melatonin 5 mg tablet 5 mg PO BEDTIME cholecalciferol (vitamin D3) 50 mcg (2,000 unit) tablet 50 mcg PO DAILY atorvastatin 20 mg tablet 20 mg PO DAILY acetaminophen 650 mg tablet extended release 650 mg PO TID tiotropium bromide 18 mcg capsule, w/inhalation device 1 cap inhalation DAILY metformin 500 mg tablet extended release 24 hr 500 mg PO DAILY Stand Alone Forms: Work/School Release Discharge Date/Time: 04/13/25 11:53 Print Language: Indonesian
--- NOTE | 2025-04-13 11:50 | PC.NURSE ---
pt was seen and sutures removed by provider. He was seen and discharged by PIT
== END 2025-04-13 11:53 | disposition home or self-care (01) ==
PROVIDERS: Emergency Provider Emergency Medicine; PCP Internal Medicine
DX: Z48.02 Encounter for removal of sutures (principal); Z79.899 Other long term (current) drug therapy
CPT/HCPCS: 99281